=== PATIENT | female | born 1940 | race Caucasian/White ===

== ENCOUNTER 2019-09-09 02:35 | Inpatient (IN) | payer MEDICARE, BC ==
[2019-09-09 03:29] LABS: #Eosinphils 0.1 thou/uL (0.0-0.7); #Lymphocytes 0.4 thou/uL (1.20-3.40); #Monocytes 0.6 thou/uL (0.11-0.59); #Neutrophils 10.7 thou/uL (1.40-6.50); %Basophils 0.2 % (0.0-1.0); %Lymphocytes 3.4 % (21.0-51.0); %Monocytes 4.7 % (0.0-10.0); %Neutrophils 90.7 % (42.0-75.0); Hemoglobin 7.7 g/dL (12.0-16.0); Mean Corpuscular HGB CONC 29.4 g/dL (32.0-36.0); Mean Corpuscular Hemoglobin 21.5 pg (27.0-31.0); Mean Corpuscular Volume 72.9 fL (78.0-98.0); Mean Platelet Volume 7.3 fL (7.4-10.4); Platelet Count 628 thou/uL (130-400); RBC Distribution Width 19.5 % (11.5-14.5); Red Blood Cell (RBC) Count 3.56 mill/uL (4.20-5.40); White Blood Cell (WBC) Count 11.8 thou/uL (4.8-10.8)
[2019-09-09 04:07] LABS: Bilirubin Negative (Negative); Blood, Urine Negative (Negative); Clarity Clear (Clear); Glucose, Urine (Dipstick) Normal (Negative); Leukocyte Negative Leu/uL (Negative); Nitrite Negative (Negative); Protein, Urine (Dipstick) Negative (Neg-Trace); Urobilinogen Normal mg/dL (Less than 2)
[2019-09-09 06:32] VITALS: BMI 28.0
[2019-09-09] MEDS ORDERED: Ondansetron PF 4 MG/2 ML Vial SLOW IVP PRN (06:39)
--- NOTE | 2019-09-09 07:50 | CT ---
PRELIMINARY REPORT/DIRECT RADIOLOGY/EMERGENCY AFTER HOURS PROCEDURE: EXAM: CT Abdomen and Pelvis with Intravenous Contrast CLINICAL HISTORY: ER 2.. Spasm discomfort; nausea vomiting diarrhea for several hours. anemia and sep sis. Surgical history of cholecystectomy, Surgical history of hysterectomy. TECHNIQUE: Axial computed tomography images of the abdomen and pelvis with intravenous contrast. CONTRAST: With; ISOVUE 370, 70ML intravenous. COMPARISON: None provided. FINDINGS: LUNG BASES: Trace bibasilar atelectasis. No pleural effusion. The heart is normal size. Thoracic aort ic calcifications. Moderate sized hiatal hernia. LIVER: Unremarkable. GALLBLADDER AND BILE DUCTS: Status post cholecystectomy. PANCREAS: Unremarkable. SPLEEN: Unremarkable. ADRENAL GLANDS: Unremarkable. KIDNEYS, URETERS, AND BLADDER: Unremarkable. No hydronephrosis or nephrolithiasis. No ureteral or eugenia dder calculi. STOMACH AND BOWEL: Moderate hiatal hernia with fluid level. Nonspecific fluid within the small and l arge bowel. Some small bowel loops are dilated although there is no obstruction. APPENDIX: No CT evidence for appendicitis. PERITONEUM: No free fluid. No free air. LYMPH NODES: No lymphadenopathy. REPRODUCTIVE: Status post hysterectomy. VASCULATURE: No aortic aneurysm. BONES: No acute fracture. Grade 1 anterolisthesis of L4 on L5 and grade 1 anterolisthesis of L5 on S 1. 10 mm lytic lesion within the vertebral body of L2. ABDOMINAL WALL AND SOFT TISSUES: Unremarkable. IMPRESSION: 1. Nonspecific fluid-filled small and large bowel. This is suggestive of enterocolitis which is mos t commonly infectious or inflammatory. 2. Moderate hiatal hernia. 3. Nonspecific lytic lesion within the vertebral body of L2. ELECTRONICALLY SIGNED BY: Jacek Cabrera M.D. Sep 09, 2019 3:57:35 AM VIDEO GAME TECHNICIAN FINAL REPORT CT ABDOMEN AND PELVIS WITH CONTRAST: History: Abdominal pain. Spasm with discomfort. Comparison: CT 2011. Findings: Findings and impression are concordant with the preliminary report. Transcribed Date/Time: 09/09/2019 8:02 AM
[2019-09-09] MEDS: Sodium Chloride 0.9% 1,000 ML IV SCH ×3 (08:15→19:50)
[2019-09-09] MEDS: Acetaminophen 325 MG TAB PO PRN ×2 (09:18→15:02)
[2019-09-09 09:57] LABS: ALT (SGPT) 17 U/L (8-55); AST (SGOT) 24 U/L (5-34); Albumin 3.5 g/dL (3.4-4.8); Alkaline Phosphatase 60 U/L (40-110); Anion Gap 14 mmol/L (10-20); BUN (Urea Nitrogen) 12 mg/dL (9.8-20.1); Bilirubin, Total 0.3 mg/dL (0.2-1.2); Calc. Creatinine Clearance 65 mL/min (70-130); Calcium 7.2 mg/dL (7.8-10.44); Carbon Dioxide 18 mmol/L (23-31); Chloride 113 mmol/L (98-107); Estimated GFR-MDRD 63; Globulin 1.9 g/dL (2.4-3.5); Glucose 117 mg/dL (83-110); Potassium 3.6 mmol/L (3.5-5.1); Protein, Total 5.4 g/dL (6.0-8.3); Sodium 141 mmol/L (136-145)
[2019-09-09] MEDS ORDERED: HYDROcodone/Acetaminophen 5/325 mg Tablet PO PRN (10:57)
--- NOTE | 2019-09-09 11:23 | HP ---
HISTORY OF PRESENT ILLNESS: Mrs. Mac is a 79-year-old woman. She was transferred to this facility from [facility]. According to the patient, she started experimenting some fever, diarrhea, and vomiting last night. She went to [facility]. She was evaluated and transferred to this facility for further management. She denies any fever. She was evaluated, found to be dehydrated and admitted. She denies any coughing. She admits to severe diarrhea and vomiting. She denies any abdominal pain. PAST MEDICAL HISTORY: Remarkable for hypertension. She denies diabetes, denies heart disease, denies chronic lung disease. She does have a history of chronic backache. PAST SURGICAL HISTORY: Remarkable for hysterectomy, appendectomy, cholecystectomy, and she had previous laparotomy due to adhesion. ALLERGIES: SHE HAS ALLERGY TO THORAZINE. SOCIAL HISTORY: She denies any history of cigarette smoking, EtOH abuse, or substance abuse. FAMILY HISTORY: Reviewed and is not contributory. MEDICATIONS: Prior to admission; she was on, 1. Tylenol. 2. Xanax. 3. Aspirin 325 mg daily. 4. Carvedilol. 5. Luvox. 6. Lisinopril. 7. Omeprazole. 8. MiraLAX. 9. Lyrica. 10. Tramadol. 11. Valtrex. REVIEW OF SYSTEMS: CONSTITUTIONAL: Admits to generalized weakness. She denies any fever. HEENT: No headache. No ocular pain. No sore throat. No rhinorrhea. No earache. No epistaxis. NECK: No neck pain. No neck stiffness. CARDIOVASCULAR: No shortness of breath. No chest pain. PULMONARY: No coughing. GASTROINTESTINAL: Admits to vomiting and diarrhea. No abdominal pain. GENITOURINARY: No dysuria. No hematuria. ENDOCRINOLOGY: No heat or cold intolerance. No polyuria, polydipsia, or polyphagia. MUSCULOSKELETAL: Admits to chronic back ache. HEMATOLOGY: No abnormal bleeding. No ecchymosis. LYMPHATIC: No palpable lymphadenopathy. No painful lymphadenopathy. SKIN: No rash. No itching. ALLERGY: No hay fever. NEUROLOGICAL: No seizure. PSYCHIATRIC: Admits she has a history of depression and she has been on antidepressant. PHYSICAL EXAMINATION: GENERAL: At the current time, she is alert, oriented, sick looking. VITAL SIGNS: Her latest vital signs show a temperature of 99.1, pulse rate 94, respiratory rate 18, and blood pressure 150/67. HEENT: Her head is normocephalic and atraumatic. Both her pupils are equal and reactive. Ears and nose, normal. Oral mucosa is moist. Pharyngeal area is clear. She has poor skin turgor. NECK: Supple. There is no distention of the jugular vein. No lymphadenopathy felt. Thyroid gland, not palpable. There is no carotid bruit. CHEST: Symmetrical with regular S1 and S2. LUNGS: Clear. ABDOMEN: Soft. Bowel sounds heard. We could not appreciate any organomegaly. EXTREMITIES: Limbs show no edema. NEUROLOGIC: She moves all extremities. LABORATORY DATA: CBC showed WBC of 11.8, hemoglobin of 7.7, hematocrit of 26, MCV of 72.9, and platelet of 628. Urinalysis show pH of 6, specific gravity of 1.024, otherwise negative. IMAGING DATA: Abdomen and pelvis CT was reported to show nonspecific fluid filled small and large bowel suggestive of enterocolitis. Moderate hiatal hernia and nonspecific lytic lesion in the vertebral body of L2. ASSESSMENT AND PLAN: This is a 79-year-old woman with history of hypertension and chronic back ache, who came in with diarrhea, vomiting, found to be dehydrated. The patient was started on normal saline. We will check her stools for Clostridium difficile and also for culture. We will start her on Flagyl. We will consult GI in view of her anemia and we will also consult Oncology in view of the lytic lesion mentioned on CT. Further evaluation and management will depend on the course of her hospitalization and her response to therapy. Job ID: [id number]
[2019-09-09] MEDS ORDERED: Iopamidol-370 76% 500 ML 1 ML ONE (11:24)
[2019-09-09] MEDS: metroNIDAZOLE 500 MG in Premix Bag 1 BAG IVPB SCH ×3 (12:00→23:16)
[2019-09-09] MEDS: HYDROcodone/Acetaminophen 5/325 mg Tablet PO PRN ×2 (12:01→20:47)
[2019-09-09 14:28] LABS: Iron 9 ug/dL (50-170); Iron Binding Capacity, Total 385 mcg/dL (265-497)
--- NOTE | 2019-09-09 15:52 | CON ---
DATE OF CONSULTATION: 09/09/2019 REASON FOR CONSULTATION: Anemia and possible lytic skeletal lesion. HISTORY OF PRESENT ILLNESS: The patient is a 79-year-old woman, who was admitted for an acute gastrointestinal illness manifested by a subjective fever, diarrhea without blood, and emesis. There is no similar illness in the family. She was evaluated in the [facility] and imaging suggested ileus or, perhaps, early small bowel obstruction. Laboratory studies also showed evidence of a microcytic anemia. Specifically, laboratory studies showed a hemoglobin of 6.9 with an MCV of 74. White blood cell count was 12.7 with a normal differential. The platelet count was 657,000. Of significance, I reviewed the patient's record in [facility], which does show the patient was iron deficient in October 2015 and presented with a hemoglobin of 5 and MCV of 62 with a ferritin of 3. She apparently underwent gastrointestinal endoscopies at that time, although source documents are not available for review. By her report, no significant findings were identified. She was seen in consultation in our office by Dr. Bello at that time and may have received intravenous iron, although it is unclear. In addition to CT findings noted above, there was a 10 mm nonspecific "lytic lesion" within L2. I am asked to see the patient at this time to provide further management recommendations regarding the anemia and the abnormal skeletal findings. ALLERGIES: NONE EXCEPT SOME UNCLEAR REACTION TO THORAZINE. MEDICATIONS: 1. Tylenol. 2. Xanax. 3. Aspirin "discontinued recently.". 4. Coreg. 5. Lisinopril. 6. Omeprazole. 7. MiraLAX. 8. Lyrica. 9. Tramadol. 10. Valtrex. MEDICAL ILLNESS: There is a history of hypertension, but no history of diabetes mellitus or heart disease. She has chronic musculoskeletal discomfort particularly in the low back. PAST SURGICAL HISTORY: She has undergone hysterectomy, appendectomy, cholecystectomy, and a laparotomy for lysis of adhesions. FAMILY HISTORY: There is no history of significant malignancy or blood disorder. SOCIAL HISTORY: She does not use alcohol or tobacco. REVIEW OF SYSTEMS: See history of present illness. Otherwise, she denies significant cardiopulmonary, GI, , musculoskeletal, or neurological complaints. PHYSICAL EXAMINATION: VITAL SIGNS: Temperature 97.7, pulse 93 and regular, respirations 18, and blood pressure 144/68. GENERAL: The patient is well developed, well nourished woman in no acute distress. She is alert, oriented, and cooperative. She is appropriate in conversation. Lying flat and comfortable. HEENT: The extraocular movements are intact. The pupils are equal, round, and reactive to light. NECK: Supple. LUNGS: Clear. CARDIOVASCULAR: Regular rate and rhythm without murmur, rub, gallop, or click. ABDOMEN: No tenderness, organomegaly, masses, bruits, or ascites. EXTREMITIES: No clubbing, cyanosis, or edema. SKIN: Normal. LYMPH: No adenopathy. MUSCULOSKELETAL: No active arthritis. NEUROLOGIC: No focal findings and the cranial nerves 2 through 12 are grossly intact. LABORATORY DATA: See history of present illness. In addition, electrolytes showed a sodium 141, potassium 3.6, chloride 113, and bicarbonate 18. The creatinine is 0.87 and BUN 12. Random blood sugar is 117 and a calcium of 7.2. Liver function studies are normal. IMAGING: See history of present illness. Specifically, the abdominal and pelvic CT scan showed nonspecific fluid within the small and large bowel with some small bowel loops slightly dilated without clear evidence of obstruction. Again, there was a 10 mm lesion in the vertebral body of L2, which was nonspecific. IMPRESSION: 1. Recurrent iron deficiency anemia superimposed upon an acute abdominal illness. 2. Nonspecific "lytic lesion" at L2. RECOMMENDATIONS: I plan to check iron studies and if iron deficiency is confirmed as I suspect, IV iron will be administered while she is hospitalized. She can be followed up in my office thereafter. GI consultation is planned and I would agree with that as she may very well need a colonoscopy, since her last study was in the 2015 or 2016 timeframe. At this point, I would recommend no further evaluation of the L2 lesion as it is nonspecific and small. This can be followed as an outpatient. Thanks very much for allowing me to provide more recommendations. Job ID: [id number] MTDD
[2019-09-09] MEDS ORDERED: Iron, Sodium Ferric Gluconate 250 MG in Sodium Chloride 0.9% 100 ML IVPB SCH (19:15)
[2019-09-09] MEDS: Diphenoxylate HCl/Atropine Tablet PO PRN (19:51)
[2019-09-09] MEDS: Gabapentin 100 MG CAP PO SCH (19:51)
[2019-09-09] MEDS: Diabetic Tussin 200 MG/10 ML UDCUP PO PRN (19:51)
[2019-09-09] MEDS: diphenhydrAMINE 50 MG CAP PO PRN (20:48)
--- NOTE | 2019-09-09 21:29 | CON ---
DATE OF CONSULTATION: 09/09/2019 REASON FOR CONSULTATION: Diarrheal illness, iron deficiency anemia. HISTORY OF PRESENT ILLNESS: Ms. Mac came to the hospital because she had severe diarrhea and vomiting starting yesterday to the point she could not control it. Her had been ill the day before, but his episode was more mild. She denies any other sick contacts. She denies any tainted food that she is aware of. She denies any recent antibiotics or new medications. She had no associated blood with the stools or blood with the vomiting. She said it is felt like a really bad gastroenteritis. In the emergency room, she was found hemodynamically stable though she was tachycardic with pulse in the 120s. She was also afebrile. However, on her labs, she was noted to have a hemoglobin of 6.9. Her white count was 12.7 and platelets were 257, MCV was 74. Hemoccults of her blood in her emesis at the outside facility were negative. The patient states that she has had this problem before about 4 or 5 years ago. She had to get iron infusions. She reportedly had endoscopies with Dr. Wallace in the past, which she reports were negative. I do not have that have access for this right now, but looking at her labs at [facility] in 2016, she had a hemoglobin of 5.1. She states she did well for awhile with iron, but recently has been not been taking her iron much because it makes her somewhat nauseated if she takes it. She has seen Dr. Bello for her anemia in the past as well. Here, she has had documented iron deficiency by labs. She had a CAT scan of the abdomen and pelvis, which was negative except for mild ileus and also lot of fluid in the lumen. There is nonspecific lesion at L2 which Hematology feels is nonsignificant. ALLERGIES: THORAZINE. MEDICATIONS: At home: 1. Tylenol. 2. Xanax. 3. Aspirin. 4. Coreg. 5. Lisinopril. 6. Omeprazole. 7. MiraLAX. 8. Lyrica. 9. Tramadol. 10. Valtrex. 11. Hydrocodone. PAST MEDICAL HISTORY: Hypertension. No diabetes. No heart disease. Chronic back pain for which she takes pain medications. PAST SURGICAL HISTORY: Hysterectomy, appendectomy, cholecystectomy, laparotomy for lysis of adhesions, and endoscopies in the past. FAMILY HISTORY: No history of colon cancer or bleeding disorders. SOCIAL HISTORY: She does not smoke or drink. REVIEW OF SYSTEMS: The patient denies taking NSAIDs over the counter. She has no dysuria, frequency, urgency, weight loss or change in appetite. MEDICATIONS: Here: 1. Tylenol p.r.n. 2. Gabapentin. 3. Hydrocodone. 4. Metronidazole. LABORATORY STUDIES: White count 7.8, hemoglobin 7.7 from 6.9 yesterday. She had 1 unit of blood ordered earlier this morning 4 am. INR is 1.2, BUN and creatinine are 12 and 0.8. Basic metabolic profile normal. this morning. Sodium 127. Liver function tests normal. Iron 9, saturation 2% with ferritin of 13, protein 5.4, albumin 3.5. ASSESSMENT: 1. Acute gastroenteritis with vomiting and diarrhea. I would recommend she be started on IV fluids. 2. Anemia, chronic with no signs of acute GI bleeding. I will give her some IV iron and we consider GI workup again after her acute gastritis is resolved. 3. Antidiarrheal p.r.n. 4. Check magnesium and phosphorus. 5. I do not think she needs an antibiotic. If she is going to be given one, probably fluoroquinolones would be a better choice until her stool cultures come back, but however, I would go and stop the Flagyl. Job ID: [id number]
[2019-09-09] MEDS: Benzonatate 100 MG CAP PO PRN (23:45)
[2019-09-10] MEDS: Acetaminophen 325 MG TAB PO PRN ×3 (03:29→17:04)
[2019-09-10] MEDS: Diphenoxylate HCl/Atropine Tablet PO PRN ×2 (03:29→14:09)
[2019-09-10] MEDS: Sodium Chloride 0.9% 1,000 ML IV SCH ×2 (03:43→08:03)
[2019-09-10 05:12] LABS: #Lymphocytes 1.1 thou/uL (1.20-3.40); #Monocytes 0.7 thou/uL (0.11-0.59); #Neutrophils 5.3 thou/uL (1.40-6.50); %Basophils 0.3 % (0.0-1.0); %Eosinophils 0.5 % (0.0-10.0); %Lymphocytes 15.6 % (21.0-51.0); %Monocytes 10.2 % (0.0-10.0); %Neutrophils 73.4 % (42.0-75.0); Hemoglobin 7.6 g/dL (12.0-16.0); Mean Corpuscular HGB CONC 30.8 g/dL (32.0-36.0); Mean Corpuscular Hemoglobin 23.2 pg (27.0-31.0); Mean Corpuscular Volume 75.4 fL (78.0-98.0); Mean Platelet Volume 6.9 fL (7.4-10.4); Platelet Count 532 thou/uL (130-400); RBC Distribution Width 19.1 % (11.5-14.5); Red Blood Cell (RBC) Count 3.28 mill/uL (4.20-5.40); White Blood Cell (WBC) Count 7.3 thou/uL (4.8-10.8)
[2019-09-10] MEDS: HYDROcodone/Acetaminophen 5/325 mg Tablet PO PRN ×3 (05:31→21:55)
[2019-09-10] MEDS: metroNIDAZOLE 500 MG in Premix Bag 1 BAG IVPB SCH (05:32)
[2019-09-10 05:35] LABS: Phosphorus 1.2 mg/dL (2.3-4.7)
[2019-09-10 05:37] LABS: ALT (SGPT) 24 U/L (8-55); AST (SGOT) 39 U/L (5-34); Albumin 3.9 g/dL (3.4-4.8); Alkaline Phosphatase 63 U/L (40-110); Anion Gap 12 mmol/L (10-20); BUN (Urea Nitrogen) 7 mg/dL (9.8-20.1); Bilirubin, Total 0.3 mg/dL (0.2-1.2); Calc. Creatinine Clearance 68 mL/min (70-130); Calcium 7.5 mg/dL (7.8-10.44); Carbon Dioxide 20 mmol/L (23-31); Chloride 115 mmol/L (98-107); Estimated GFR-MDRD 66; Globulin 1.8 g/dL (2.4-3.5); Glucose 95 mg/dL (83-110); Magnesium 1.7 mg/dL (1.6-2.6); Protein, Total 5.7 g/dL (6.0-8.3); Sodium 144 mmol/L (136-145)
[2019-09-10] MEDS ORDERED: Potassium Chloride 20 MEQ TAB PO SCH (06:00)
[2019-09-10] MEDS ORDERED: Potassium Phosphate 30 MMOL in Sodium Chloride 0.9% 500 ML IVPB SCH (06:30)
[2019-09-10] MEDS: Gabapentin 100 MG CAP PO SCH ×2 (08:30→20:02)
[2019-09-10] MEDS: Benzonatate 100 MG CAP PO PRN ×3 (08:36→21:55)
--- NOTE | 2019-09-10 09:54 | PDOC.HOSPP ---
- Subjective Encounter Date: 09/10/19 Encounter Time: 08:20 Subjective: +Diarrhea, dry cough. - Objective Vital Signs & Weight: Vital Signs (12 hours) Temp Pulse Resp BP Pulse Ox 09/10/19 08:04 98.4 F 100 20 143/74 H 90 L 09/10/19 08:00 98.4 F 09/10/19 04:00 98.1 F 90 18 162/78 H 94 L 09/10/19 00:00 98 F 96 18 168/77 H 97 Weight Weight 168 lb 3.2 oz I&O: 09/09/19 09/10/19 09/11/19 06:59 06:59 06:59 Intake Total 3875 360 Balance 3875 360 Result Diagrams: 09/10/19 04:55 09/10/19 04:55 Hospitalist ROS - Medication Medications: Active Medications Generic Name Dose Route Start Last Admin Trade Name Freq PRN Reason Stop Dose Admin Acetaminophen 650 mg 09/09/19 06:39 09/10/19 03:29 Tylenol PO 650 mg Q6H PRN Administration Mild Pain (1-3) Hydrocodone Bitart/Acetaminophen 1 tab 09/09/19 11:00 09/10/19 05:31 Rudolph 5/325 PO 1 tab TIDPRN PRN Administration Moderate to Severe Pain (6-10) Benzonatate 100 mg 09/09/19 23:33 09/10/19 08:36 Tessalon PO 100 mg TIDPRN PRN Administration Cough Diphenhydramine HCl 50 mg 09/09/19 18:18 09/09/19 20:48 Benadryl PO 50 mg HS PRN Administration Itching & Insomnia Diphenoxylate HCl/Atropine 1 tab 09/09/19 19:06 09/10/19 03:29 Lomotil PO 1 tab Q6H PRN Administration Diarrhea/Loose Stools Gabapentin 100 mg 09/09/19 21:00 09/10/19 08:30 Neurontin PO 100 mg BID WING Administration Guaifenesin 100 mg 09/09/19 18:44 09/09/19 19:51 Robitussin Sf PO 100 mg Q6H PRN Administration Cough Metronidazole 500 mg/ Device 100 mls @ 100 mls/hr 09/09/19 12:00 09/10/19 05: 32 IVPB 100 mls Q6HR WING Administration Sodium Chloride 1,000 mls @ 75 mls/hr 09/09/19 19:15 09/10/19 08:03 Normal Saline 0.9% IV Not Given .[id number] WING Potassium Phosphate 30 mmol/ 510 mls @ 83.3 mls/hr 09/10/19 06:30 09/10/19 06 :31 Sodium Chloride IVPB 09/10/19 12:38 510 mls NOW WING Administration - Exam Neck: no JVD Heart: RRR Respiratory: CTAB Gastrointestinal: soft Extremities: 1+ LE edema Neurological: no weakness Psychiatric: normal affect Hosp A/P (1) Acute gastroenteritis Code(s): K52.9 - NONINFECTIVE GASTROENTERITIS AND COLITIS, UNSPECIFIED Status : Acute (2) Anemia Code(s): D64.9 - ANEMIA, UNSPECIFIED Status: Acute (3) HTN (hypertension) Code(s): I10 - ESSENTIAL (PRIMARY) HYPERTENSION Status: Acute (4) Lytic lesion of bone on x-ray Code(s): M89.9 - DISORDER OF BONE, UNSPECIFIED Status: Acute Plan: Spine.. (5) Hypokalemia Code(s): E87.6 - HYPOKALEMIA Status: Acute (6) Hypokalemia Code(s): E87.6 - HYPOKALEMIA Status: Acute - Plan Continue hydration, Levaquin. Check chest x-ray. f/u with Oncology as outpatient. F/u with GI. Supplement K. Check Mg
--- NOTE | 2019-09-10 10:02 | RAD ---
Exam: Chest one view HISTORY:Possible pneumonia. Comparison: 09/09/2019 FINDINGS: Cardiac silhouette:Upper normal cardiac silhouette Aorta: Atherosclerosis of the aortic knob Pulmonary vessels: Normal Costophrenic angles: No significant pleural fluid. Stable elevation the right hemidiaphragm. LUNGS: Chronic changes of the lung parenchyma. No masses or consolidation. Pneumothorax: None Osseous abnormalities: None IMPRESSION: No acute cardiopulmonary process.
[2019-09-10] MEDS: Potassium Chloride 10 MEQ in Premix Bag 1 BAG IVPB SCH ×2 (11:30→15:23)
[2019-09-10] MEDS ORDERED: Loperamide HCl 1 MG/7.5 ML UDCUP PO PRN (14:56)
--- NOTE | 2019-09-10 15:30 | PRG ---
DATE OF SERVICE: 09/10/2019 SUBJECTIVE: Ms. Mac states she feels well, but when asked in detail, she is still having loose stools 5-7 every 12 hours. She denies any fever. She denies any rashes, myalgias, or arthralgias. Nurse reports her stools are getting a little bit william color, but the patient says it is brown or used to be green. OBJECTIVE: Temperature is 98, pulse is 90-100, blood pressure is 143/74. Abdomen is soft and nontender. Her is at the bedside. LABORATORY DATA: White count dropped from 11.8 to 7.3 today, hemoglobin 7.6, platelet count 532. Sodium 144, potassium 3, chloride 115, bicarb 20, calcium 7.5, phosphorus 1.2 (replaced), magnesium 1.7 (replaced). AST and ALT are 39 and 24. Albumin 3.9. Microbiology and stool culture so far negative from outside facility. Stool culture shows few normal enteric bahman. Lactoferrin was positive. Clostridium difficile was negative. Blood cultures so far negative. ASSESSMENT: Acute diarrheal illness, likely viral. Cultures remain negative. PLAN: 1. I would stop her antibiotics. There is no indication for these. 2. I would change her IV fluids to D5 with potassium in it. 3. Continue to replace electrolytes as needed. 4. She is refusing to take the Lomotil. I have changed the order to Imodium. We will follow along. Job ID: [id number]
[2019-09-10] MEDS: Loperamide HCl 2 MG CAP PO PRN ×2 (17:03→21:55)
[2019-09-10] MEDS: D5 0.9% NS w/ 20 mEq KCl 1,000 ML IV SCH (17:06)
[2019-09-10] MEDS: Diabetic Tussin 200 MG/10 ML UDCUP PO PRN (20:03)
[2019-09-10] MEDS: diphenhydrAMINE 50 MG CAP PO PRN (20:14)
[2019-09-10] MEDS ORDERED: diphenhydrAMINE 25 MG CAP PO PRN (20:25)
[2019-09-10] MEDS: Carvedilol 25 MG TAB PO SCH (20:41)
[2019-09-10] MEDS ORDERED: Gabapentin 100 MG CAP PO SCH (21:00)
[2019-09-11] MEDS: Acetaminophen 325 MG TAB PO PRN ×3 (03:07→19:54)
[2019-09-11] MEDS: Diabetic Tussin 200 MG/10 ML UDCUP PO PRN (03:15)
[2019-09-11 05:34] LABS: #Basophils 0.1 thou/uL (0.0-0.2); #Lymphocytes 1.3 thou/uL (1.20-3.40); #Monocytes 0.9 thou/uL (0.11-0.59); #Neutrophils 5.5 thou/uL (1.40-6.50); %Basophils 0.8 % (0.0-1.0); %Eosinophils 0.6 % (0.0-10.0); %Lymphocytes 17.1 % (21.0-51.0); %Monocytes 11.4 % (0.0-10.0); %Neutrophils 70.1 % (42.0-75.0); Hemoglobin 6.7 g/dL (12.0-16.0); Mean Corpuscular HGB CONC 29.9 g/dL (32.0-36.0); Mean Corpuscular Hemoglobin 22.1 pg (27.0-31.0); Mean Corpuscular Volume 74.1 fL (78.0-98.0); Mean Platelet Volume 7.3 fL (7.4-10.4); Platelet Count 453 thou/uL (130-400); RBC Distribution Width 18.8 % (11.5-14.5); Red Blood Cell (RBC) Count 3.04 mill/uL (4.20-5.40); White Blood Cell (WBC) Count 7.9 thou/uL (4.8-10.8)
[2019-09-11 05:53] LABS: Anion Gap 10 mmol/L (10-20); BUN (Urea Nitrogen) Less than 4 mg/dL (9.8-20.1); Calc. Creatinine Clearance 78 mL/min (70-130); Calcium 7.4 mg/dL (7.8-10.44); Carbon Dioxide 20 mmol/L (23-31); Chloride 115 mmol/L (98-107); Estimated GFR-MDRD 77; Glucose 102 mg/dL (83-110); Magnesium 1.6 mg/dL (1.6-2.6); Potassium 3.1 mmol/L (3.5-5.1); Sodium 142 mmol/L (136-145)
[2019-09-11] MEDS: D5 0.9% NS w/ 20 mEq KCl 1,000 ML IV SCH ×2 (05:55→17:19)
[2019-09-11 05:57] LABS: Phosphorus 1.8 mg/dL (2.3-4.7)
[2019-09-11] MEDS: HYDROcodone/Acetaminophen 5/325 mg Tablet PO PRN ×3 (06:00→21:56)
[2019-09-11] MEDS: Benzonatate 100 MG CAP PO PRN ×3 (06:00→19:55)
[2019-09-11] MEDS: Loperamide HCl 2 MG CAP PO PRN (06:01)
[2019-09-11] MEDS ORDERED: Potassium Phosphate 9 MMOL in Sodium Chloride 0.9% 100 ML IVPB SCH (06:45)
[2019-09-11] MEDS: Carvedilol 25 MG TAB PO SCH ×3 (07:55→19:54)
[2019-09-11] MEDS: Lisinopril 20 MG TAB PO SCH (07:55)
[2019-09-11] MEDS: Gabapentin 100 MG CAP PO SCH ×2 (07:56→19:54)
--- NOTE | 2019-09-11 12:35 | PDOC.HOSPP ---
- Subjective Encounter Date: 09/11/19 Encounter Time: 12:26 Subjective: feels much better - Objective Vital Signs & Weight: Vital Signs (12 hours) Temp Pulse Resp BP Pulse Ox 09/11/19 08:34 98.2 F 87 20 167/80 H 95 09/11/19 08:00 95 09/11/19 03:30 97.4 F L 85 20 152/84 H 96 Weight Weight 168 lb 3.2 oz I&O: 09/10/19 09/11/19 09/12/19 06:59 06:59 06:59 Intake Total 3875 4535 480 Output Total 1625 Balance 3875 3033 480 Result Diagrams: 09/11/19 05:02 09/11/19 05:02 Hospitalist ROS - Medication Medications: Active Medications Generic Name Dose Route Start Last Admin Trade Name Freq PRN Reason Stop Dose Admin Acetaminophen 650 mg 09/09/19 06:39 09/11/19 10:39 Tylenol PO 650 mg Q6H PRN Administration Mild Pain (1-3) Hydrocodone Bitart/Acetaminophen 1 tab 09/09/19 11:00 09/11/19 06:00 [place] 5/325 PO 1 tab TIDPRN PRN Administration Moderate to Severe Pain (6-10) Benzonatate 100 mg 09/09/19 23:33 09/11/19 06:00 Tessalon PO 100 mg TIDPRN PRN Administration Cough Carvedilol 25 mg 09/10/19 21:00 09/11/19 07:56 Coreg PO 25 mg BID WING Administration Diphenhydramine HCl 50 mg 09/09/19 18:18 09/10/19 20:14 Benadryl PO 50 mg HS PRN Administration Itching & Insomnia Fluvoxamine Maleate 200 mg 09/11/19 09:00 09/11/19 07:55 Luvox PO 200 mg DAILY WING Administration Gabapentin 100 mg 09/09/19 21:00 09/11/19 07:56 Neurontin PO 100 mg BID WING Administration Guaifenesin 100 mg 09/09/19 18:44 09/11/19 03:15 Robitussin Sf PO 100 mg Q6H PRN Administration Cough Potassium Chloride/Dextrose/Sod Cl 1,000 mls @ 75 mls/hr 09/10/19 15:15 09/11 05:55 D5 0.9% Ns W/ 20 Meq Kcl IV 1,000 mls .[id number] WING Administration Levofloxacin 500 mg 09/11/19 06:00 09/11/19 05:58 Levaquin PO 500 mg 0600 WING Administration Lisinopril 40 mg 09/11/19 09:00 09/11/19 07:55 Zestril PO 40 mg DAILY WING Administration Loperamide HCl 2 mg 09/10/19 16:00 09/11/19 06:01 Imodium PO 2 mg Q4H PRN Administration Diarrhea/Loose Stools - Exam General Appearance: awake alert Neck: no JVD Heart: RRR, no murmur Respiratory: CTAB Gastrointestinal: soft, non-tender, normal bowel sounds Extremities: no edema Hosp A/P (1) Iron deficiency anemia due to chronic blood loss Code(s): D50.0 - IRON DEFICIENCY ANEMIA SECONDARY TO BLOOD LOSS (CHRONIC) Status: Acute (2) Dehydration Code(s): E86.0 - DEHYDRATION Status: Acute (3) Acute gastroenteritis Code(s): K52.9 - NONINFECTIVE GASTROENTERITIS AND COLITIS, UNSPECIFIED Status : Acute (4) HTN (hypertension) Code(s): I10 - ESSENTIAL (PRIMARY) HYPERTENSION Status: Acute - Plan transfusion in progress no evidense for acute bleed will receive iv iron
[2019-09-11] MEDS ORDERED: guaiFENesin ER 600 MG TAB PO SCH (15:30)
--- NOTE | 2019-09-11 15:38 | PDOC.MOPN ---
Interval History: feels better after transfusion - Vital Signs Vital Signs: Vital Signs (12 hours) Temp Pulse Resp BP Pulse Ox 09/11/19 08:34 98.2 F 87 20 167/80 H 95 09/11/19 08:00 95 Weight Weight 168 lb 3.2 oz - Physical Exam General: Alert, Oriented x3, No acute distress HEENT: Atraumatic, PERRLA, EOMI, Mucous membr. moist/pink Lungs: Other (cough) Cardiovascular: Regular rate, Normal S1, Normal S2, No murmurs, Gallops, Rubs Abdomen: Normal bowel sounds, Soft, No tenderness, No hepatospenomegaly, No masses Extremities: No clubbing Skin: No rashes, No breakdown, No significant lesion Neurological: Normal gait, Normal speech, Strength at 5/5 X4 ext, Normal tone, Sensation intact, Cranial nerves 3-12 NL, Reflexes 2+ Psych/Mental Status: Mental status NL, Mood NL - Labs Result Diagrams: 09/11/19 05:02 09/11/19 05:02 Lab results: Laboratory Results - last 24 hr 09/11/19 05:02: WBC 7.9, RBC 3.04 L, Hgb 6.7 L, Hct 22.5 L, MCV 74.1 L, MCH 22.1 L, MCHC 29.9 L, RDW 18.8 H, Plt Count 453 H, MPV 7.3 L, Neutrophils % 70.1 , Lymphocytes % 17.1 L, Monocytes % 11.4 H, Eosinophils % 0.6, Basophils % 0.8, Neutrophils # 5.5, Lymphocytes # 1.3, Monocytes # 0.9 H, Eosinophils # 0.0, Basophils # 0.1 09/11/19 05:02: Phosphorus 1.8 L 09/11/19 05:02: Sodium 142, Potassium 3.1 L, Chloride 115 H, Carbon Dioxide 20 L , Anion Gap 10, BUN Less than 4 L, Creatinine 0.73, Estimated GFR (MDRD) 77, Glucose 102, Calcium 7.4 L, Magnesium 1.6 09/09/19 03:08: Blood Type O POSITIVE, Antibody Screen NEGATIVE, Crossmatch See Detail Status: lab reviewed by me A/P - Problem (1) Anemia Current Visit: Yes Code(s): D64.9 - ANEMIA, UNSPECIFIED Status: Acute (2) Iron deficiency anemia due to chronic blood loss Current Visit: Yes Code(s): D50.0 - IRON DEFICIENCY ANEMIA SECONDARY TO BLOOD LOSS (CHRONIC) Status: Acute - Plan Plan: PRBC transfusion today Has recd dose of IV iron this admission She will follow up in our clinic after discharge for repeat labs, IV iron prn.
[2019-09-11] MEDS: guaiFENesin ER 600 MG TAB PO SCH (19:53)
[2019-09-11] MEDS: diphenhydrAMINE 50 MG CAP PO PRN (20:50)
--- NOTE | 2019-09-11 21:33 | RAD ---
Chest one view HISTORY: Dyspnea. Cough. COMPARISON: 09/10/2019. FINDINGS: Cardiac silhouette is magnified and upper limits of normal in size. Pulmonary vasculature m ore engorged. Mediastinum remains midline. Parenchymal scarring at the left base is stable. Linear atelectasis now projects over the central portion of the right lung. Likely within the anterio r segment of the right upper lobe. This has appeared Periodically on prior chest radiographs. No evidence of pneumothorax. IMPRESSION: Redeveloping atelectasis right upper lobe. Chronic scarring left lower lobe.
[2019-09-12] MEDS ORDERED: guaiFENesin/Codeine Phosphate 200 mg/20 mg 10 ml UD Cup PO PRN (01:48)
[2019-09-12] MEDS ORDERED: Furosemide 20 MG/2 ML VIAL SLOW IVP SCH (02:00)
[2019-09-12] MEDS: Loperamide HCl 2 MG CAP PO PRN (02:37)
[2019-09-12 05:46] LABS: #Eosinphils 0.1 thou/uL (0.0-0.7); #Lymphocytes 1.6 thou/uL (1.20-3.40); #Neutrophils 5.6 thou/uL (1.40-6.50); %Basophils 0.3 % (0.0-1.0); %Eosinophils 1.8 % (0.0-10.0); %Lymphocytes 18.6 % (21.0-51.0); %Monocytes 11.8 % (0.0-10.0); %Neutrophils 67.5 % (42.0-75.0); Hemoglobin 7.8 g/dL (12.0-16.0); Mean Corpuscular HGB CONC 29.8 g/dL (32.0-36.0); Mean Corpuscular Hemoglobin 22.3 pg (27.0-31.0); Mean Corpuscular Volume 74.8 fL (78.0-98.0); Mean Platelet Volume 7.1 fL (7.4-10.4); Platelet Count 449 thou/uL (130-400); RBC Distribution Width 18.8 % (11.5-14.5); Red Blood Cell (RBC) Count 3.49 mill/uL (4.20-5.40); White Blood Cell (WBC) Count 8.3 thou/uL (4.8-10.8)
[2019-09-12] MEDS: Benzonatate 100 MG CAP PO PRN ×2 (06:11→21:04)
[2019-09-12 06:16] LABS: Anion Gap 11 mmol/L (10-20); BUN (Urea Nitrogen) Less than 4 mg/dL (9.8-20.1); Calc. Creatinine Clearance 73 mL/min (70-130); Calcium 7.8 mg/dL (7.8-10.44); Carbon Dioxide 23 mmol/L (23-31); Chloride 111 mmol/L (98-107); Estimated GFR-MDRD 72; Glucose 91 mg/dL (83-110); Potassium 3.1 mmol/L (3.5-5.1); Sodium 142 mmol/L (136-145)
[2019-09-12] MEDS: HYDROcodone/Acetaminophen 5/325 mg Tablet PO PRN ×3 (06:17→21:05)
[2019-09-12 06:21] LABS: Phosphorus 1.8 mg/dL (2.3-4.7)
[2019-09-12] MEDS ORDERED: Potassium Phosphate 12 MMOL in Sodium Chloride 0.9% 100 ML IVPB SCH (07:00)
[2019-09-12] MEDS: D5 0.9% NS w/ 20 mEq KCl 1,000 ML IV SCH (07:13)
[2019-09-12] MEDS: guaiFENesin ER 600 MG TAB PO SCH (09:13)
[2019-09-12] MEDS: Lisinopril 20 MG TAB PO SCH (09:14)
[2019-09-12] MEDS: Carvedilol 25 MG TAB PO SCH ×2 (09:14→21:04)
[2019-09-12] MEDS: Gabapentin 100 MG CAP PO SCH ×2 (09:14→21:04)
[2019-09-12] MEDS: Acetaminophen 325 MG TAB PO PRN (09:17)
[2019-09-12] MEDS: guaiFENesin/Codeine Phosphate 200 mg/20 mg 10 ml UD Cup PO PRN ×2 (10:20→18:23)
--- NOTE | 2019-09-12 13:31 | PDOC.HOSPP ---
- Subjective Encounter Date: 09/12/19 Encounter Time: 13:30 Subjective: no diarrhea, still has cough - Objective Vital Signs & Weight: Vital Signs (12 hours) Temp Pulse Resp BP Pulse Ox 09/12/19 13:10 85 18 95 09/12/19 08:12 98.1 F 82 20 155/85 H 97 09/12/19 08:00 96 09/12/19 06:57 86 20 96 09/12/19 04:27 98.1 F 86 18 172/87 H 96 Weight Weight 168 lb 3.2 oz I&O: 09/11/19 09/12/19 09/13/19 06:59 06:59 06:59 Intake Total 4535 2840 240 Output Total 1625 Balance 2910 2840 240 Result Diagrams: 09/12/19 05:19 09/12/19 05:19 Radiology Reviewed by me: Yes (cxr- R sided atelectasis) Hospitalist ROS - Medication Medications: Active Medications Generic Name Dose Route Start Last Admin Trade Name Freq PRN Reason Stop Dose Admin Acetaminophen 650 mg 09/09/19 06:39 09/12/19 09:17 Tylenol PO 650 mg Q6H PRN Administration Mild Pain (1-3) Hydrocodone Bitart/Acetaminophen 1 tab 09/09/19 11:00 09/12/19 06:17 [place] 5/325 PO 1 tab TIDPRN PRN Administration Moderate to Severe Pain (6-10) Albuterol/Ipratropium 3 ml 09/12/19 01:00 09/12/19 13:10 Duoneb NEB 3 ml [id number] WING Administration Benzonatate 100 mg 09/09/19 23:33 09/12/19 06:11 Tessalon PO 100 mg TIDPRN PRN Administration Cough Carvedilol 25 mg 09/10/19 21:00 09/12/19 09:14 Coreg PO 25 mg BID WING Administration Diphenhydramine HCl 50 mg 09/09/19 18:18 09/11/19 20:50 Benadryl PO 50 mg HS PRN Administration Itching & Insomnia Fluvoxamine Maleate 200 mg 09/11/19 09:00 09/12/19 09:13 Luvox PO 200 mg DAILY WING Administration Gabapentin 100 mg 09/09/19 21:00 09/12/19 09:14 Neurontin PO 100 mg BID WING Administration Guaifenesin/Codeine Phosphate 10 ml 09/12/19 01:48 09/12/19 02:28 Robitussin Ac PO 10 ml HS PRN Administration Cough Guaifenesin/Codeine Phosphate 10 ml 09/12/19 09:46 09/12/19 10:20 Robitussin Ac PO 10 ml Q4H PRN Administration Cough Lisinopril 40 mg 09/11/19 09:00 09/12/19 09:14 Zestril PO 40 mg DAILY WING Administration Loperamide HCl 2 mg 09/10/19 16:00 09/12/19 02:37 Imodium PO 2 mg Q4H PRN Administration Diarrhea/Loose Stools - Exam General Appearance: awake alert Neck: no JVD Heart: RRR, no murmur Respiratory: CTAB Gastrointestinal: soft, normal bowel sounds Extremities: no edema Hosp A/P (1) Iron deficiency anemia due to chronic blood loss Code(s): D50.0 - IRON DEFICIENCY ANEMIA SECONDARY TO BLOOD LOSS (CHRONIC) Status: Acute (2) Dehydration Code(s): E86.0 - DEHYDRATION Status: Acute (3) Acute gastroenteritis Code(s): K52.9 - NONINFECTIVE GASTROENTERITIS AND COLITIS, UNSPECIFIED Status : Acute (4) HTN (hypertension) Code(s): I10 - ESSENTIAL (PRIMARY) HYPERTENSION Status: Acute Qualifiers: Hypertension type: essential hypertension Qualified Code(s): I10 - Essential (primary) hypertension (5) Atelectasis of right lung Code(s): J98.11 - ATELECTASIS Status: Acute - Plan post transfusion , iv iron incentive spirometry, up, out of bed discussed EBEN DEAN with GI
--- NOTE | 2019-09-12 13:51 | PRG ---
DATE OF SERVICE: 09/11/2019 SUBJECTIVE: Ms. Mac's diarrhea is improved, but she is still having some rust-colored stool. No abdominal pains. No fevers. OBJECTIVE: VITAL SIGNS: Temperature max 98.4, pulse is in the 80s to 90s, blood pressure 167/80. ABDOMEN: Soft and nontender. LUNGS: Clear. RECTAL: Some mucoid rust-colored stools. LABORATORY DATA: Hemoglobin 6.7, white count 7.9, platelet count 453. Basic metabolic profile, normal. Stool cultures, nondiagnostic. ASSESSMENT: 1. Improving diarrhea. 2. Some rectal bleeding, likely related to outlet or possibly mild colitis. 3. Chronic anemia, somewhat worse today with hemoglobin of 6.7. RECOMMENDATIONS: Continue present medications. Discontinue antibiotics and transfuse. If the patient's anemia is at worse while she is here, she may need endoscopy. Job ID: [id number]
[2019-09-12] MEDS: diphenhydrAMINE 50 MG CAP PO PRN (21:23)
[2019-09-13] MEDS: guaiFENesin/Codeine Phosphate 200 mg/20 mg 10 ml UD Cup PO PRN ×5 (00:12→22:46)
[2019-09-13] MEDS: Acetaminophen 325 MG TAB PO PRN ×3 (00:13→20:01)
[2019-09-13] MEDS: HYDROcodone/Acetaminophen 5/325 mg Tablet PO PRN ×3 (05:34→22:45)
--- NOTE | 2019-09-13 08:08 | PRG ---
DATE OF SERVICE: 09/12/2019 SUBJECTIVE: Ms. Mac still having diarrhea, but she OBJECTIVE: VITAL SIGNS: Temperature is 98, pulse 82. LUNGS: Crackles, . Upper airway sounds in the right side. ABDOMEN: Soft and nontender. ASSESSMENT: 1. Chronic anemia, iron deficiency. 2. Admission with acute diarrheal illness, improved. 3. Rectal bleeding, improved. 4. Atelectasis, right lung. PLAN: I talked with Dr. Fleming. I agree with IV and stopping antibiotics. Stool cultures negative and will get her up walking around. Hopefully, she can get home in a few weeks and screening in the outpatient setting for outpatient evaluation of her iron deficiency. We will advance diet to bland. Job ID: [id number]
[2019-09-13] MEDS: Lisinopril 20 MG TAB PO SCH (08:14)
[2019-09-13] MEDS: Carvedilol 25 MG TAB PO SCH ×2 (08:15→20:02)
[2019-09-13] MEDS: Gabapentin 100 MG CAP PO SCH ×2 (08:15→20:02)
--- NOTE | 2019-09-13 11:34 | PDOC.HOSPP ---
- Subjective Encounter Date: 09/13/19 Encounter Time: 11:28 Subjective: stronger, less cough, sob - Objective Vital Signs & Weight: Vital Signs (12 hours) Temp Pulse Resp BP BP Pulse Ox 09/13/19 08:14 146/76 H 09/13/19 08:00 98.0 F 76 20 146/76 H 96 09/13/19 07:45 92 20 96 09/13/19 03:42 98.0 F 71 18 121/70 92 L 09/13/19 00:39 91 20 Weight Weight 168 lb 3.2 oz I&O: 09/12/19 09/13/19 09/14/19 06:59 06:59 06:59 Intake Total 2840 2160 600 Balance 2840 2160 600 Result Diagrams: 09/12/19 05:19 09/12/19 05:19 Hospitalist ROS - Medication Medications: Active Medications Generic Name Dose Route Start Last Admin Trade Name Freq PRN Reason Stop Dose Admin Acetaminophen 650 mg 09/09/19 06:39 09/13/19 11:16 Tylenol PO 650 mg Q6H PRN Administration Mild Pain (1-3) Hydrocodone Bitart/Acetaminophen 1 tab 09/09/19 11:00 09/13/19 05:34 [place] 5/325 PO 1 tab TIDPRN PRN Administration Moderate to Severe Pain (6-10) Albuterol/Ipratropium 3 ml 09/12/19 01:00 09/13/19 07:45 Duoneb NEB 3 ml [id number] WING Administration Benzonatate 100 mg 09/09/19 23:33 09/12/19 21:04 Tessalon PO 100 mg TIDPRN PRN Administration Cough Carvedilol 25 mg 09/10/19 21:00 09/13/19 08:15 Coreg PO 25 mg BID WING Administration Diphenhydramine HCl 50 mg 09/09/19 18:18 09/12/19 21:23 Benadryl PO 50 mg HS PRN Administration Itching & Insomnia Fluvoxamine Maleate 200 mg 09/11/19 09:00 09/13/19 09:43 Luvox PO 200 mg DAILY WING Administration Gabapentin 100 mg 09/09/19 21:00 09/13/19 08:15 Neurontin PO 100 mg BID WING Administration Guaifenesin/Codeine Phosphate 10 ml 09/12/19 09:46 09/13/19 11:13 Robitussin Ac PO 10 ml Q4H PRN Administration Cough Lisinopril 40 mg 09/11/19 09:00 09/13/19 08:14 Zestril PO 40 mg DAILY WING Administration Loperamide HCl 2 mg 09/10/19 16:00 09/12/19 02:37 Imodium PO 2 mg Q4H PRN Administration Diarrhea/Loose Stools - Exam General Appearance: awake alert Neck: no JVD Heart: RRR, no murmur Respiratory: CTAB Gastrointestinal: soft, normal bowel sounds Extremities: no edema Hosp A/P (1) Iron deficiency anemia due to chronic blood loss Code(s): D50.0 - IRON DEFICIENCY ANEMIA SECONDARY TO BLOOD LOSS (CHRONIC) Status: Acute (2) Dehydration Code(s): E86.0 - DEHYDRATION Status: Acute (3) Acute gastroenteritis Code(s): K52.9 - NONINFECTIVE GASTROENTERITIS AND COLITIS, UNSPECIFIED Status : Acute (4) HTN (hypertension) Code(s): I10 - ESSENTIAL (PRIMARY) HYPERTENSION Status: Acute Qualifiers: Hypertension type: essential hypertension Qualified Code(s): I10 - Essential (primary) hypertension (5) Atelectasis of right lung Code(s): J98.11 - ATELECTASIS Status: Acute (6) Acute respiratory failure with hypoxemia Code(s): J96.01 - ACUTE RESPIRATORY FAILURE WITH HYPOXIA Status: Acute - Plan post transfusion , iv iron incentive spirometry, up, out of bed Check O2 sats off O2 discussed future DEAN for occult bleeding
--- NOTE | 2019-09-13 13:01 | PQF ---
CLINICAL DOCUMENTATION IMPROVEMENT CLARIFICATION FORM: ICD-10 Updated PLEASE DO AN ADDENDUM TO THE PROGRESS NOTE WITH ANY DOCUMENTATION UPDATES OR ADDITIONS AND CARRY THROUGH TO DC SUMMARY. THANK YOU. DATE: 09/13/19 ATTN: DR. THAKUR Please exercise your independent, professional judgment in responding to the clarification form. Clinical indicators are provided on the bottom of this form for your review Please check appropriate box(es): [ ] Sepsis due to: (Pna, UTI, gangrenous gall bladder, etc.) Due to: [ ] Device (please specify) [ ] Implant [ ] Graft [ ] Infusion [ x ] SIRS due to non-infectious process (please specify etiology) [ ] with organ dysfunction [ ] without organ dysfunction [ ] Severe sepsis with acute organ dysfunction of: (Examples: respiratory failure, encephalopathy, acute kidney failure, other) [ ] Septic Shock [ ] Localized infection without sepsis [ ] Other diagnosis [ ] Unable to determine In addition, please specify: Present on Admission (POA): [ ] Yes [ ] No [ ] Unable to determine For continuity of documentation, please document condition throughout progress notes and discharge summary. Thank You. CLINICAL INDICATORS - SIGNS / SYMPTOMS / LABS / RESULTS AND LOCATION IN MR ER NOTE: PULSE 115 TEMP 101.8 WBC 09/09: 11.8 RISKS: ENTEROCOLITIS (H&P 09/09) H/O DIABETES (H&P 09/10) TREATMENT: IV FLUIDS (ER-09/12) STOOL CULTURES 09/09 LEVAQUIN (09/11-09/12) (This form is maintained as a part of the permanent medical record) [employer] Win[employer] Viewer 2015 [employer]. All Rights Reserved [email or web address] [email or web address] Office: [phone] GINA
[2019-09-13 19:15] VITALS: TEMP 98.2
[2019-09-13] MEDS: Benzonatate 100 MG CAP PO PRN (20:01)
[2019-09-13] MEDS: diphenhydrAMINE 50 MG CAP PO PRN (22:46)
--- NOTE | 2019-09-13 23:39 | PRG ---
DATE OF SERVICE: 09/13/2019 SUBJECTIVE: Ms. Mac is no longer having diarrhea. She is breathing better. She is off oxygen. OBJECTIVE: VITAL SIGNS: Temperature is 98.2, pulse 95, O2 saturation 93%, respirations 17, and blood pressure . ABDOMEN: Soft and nontender. LABORATORY DATA: Hemoglobin is 8.3, white count 7.8, platelet count 449. BNP normal. Final stool culture normal bahman. ASSESSMENT: 1. Acute gastroenteritis, likely viral, improving. 2. Chronic iron deficiency anemia with heme-positive stools. She has had previous upper and lower endoscopies for this and capsule endoscopy by Dr. David Wallace negative. She is on iron supplementation. For time, we will stop that. In the outpatient setting once this all resolved, we will set her up for upper and lower endoscopy. 3. Dehydration, resolved. Hypertension. Atelectasis of right lung, improving. Job ID: [id number]
[2019-09-14] MEDS: Acetaminophen 325 MG TAB PO PRN (05:08)
[2019-09-14] MEDS: guaiFENesin/Codeine Phosphate 200 mg/20 mg 10 ml UD Cup PO PRN ×2 (05:08→12:02)
[2019-09-14] MEDS: Lisinopril 20 MG TAB PO SCH (07:52)
[2019-09-14] MEDS: Carvedilol 25 MG TAB PO SCH (07:53)
[2019-09-14] MEDS: Gabapentin 100 MG CAP PO SCH (07:53)
[2019-09-14] MEDS: HYDROcodone/Acetaminophen 5/325 mg Tablet PO PRN (07:53)
[2019-09-14 07:54] VITALS: BP 146/76
--- NOTE | 2019-09-14 11:08 | DIS ---
DATE OF ADMISSION: 09/09/2019 DATE OF DISCHARGE: 09/14/2019 PRIMARY CARE DOCTOR: Inder Wallace [employer]IOR DEVELOPER, also Arjun Kinsey MD. DISPOSITION: Discharged home. FINAL DIAGNOSES: Gastroenteritis, resolved, iron deficiency anemia, hypertension, acute respiratory failure with hypoxia, atelectasis of lung, hypertension, dehydration. DISCHARGE MEDICATIONS: 1. Valtrex 500 mg t.i.d. 2. Luvox 200 mg a day. 3. Coreg 25 mg twice a day. 4. Zestril 40 mg a day. 5. Gabapentin 100 mg b.i.d. 6. Hydrocodone 10/325 one p.o. t.i.d. p.r.n. 7. Robitussin AC 10 mL q.6 hours p.r.n. cough. 8. Albuterol sulfate 2 puffs inhaled p.r.n. shortness of breath q.4 hours. ALLERGIES: TO MEPERIDINE AND CHLORPROMAZINE. CODE STATUS: Full. PENDING AT TIME OF DISCHARGE: Nothing. DIET: As tolerated. HOSPITAL COURSE: The [facility] [place] [facility] with nausea, vomiting, fever. She was found to be dehydrated, started on fluids. She was found to have significant iron deficiency anemia. GI was consulted, as was Oncology Dr. Arjun Kinsey and Dr. Musa Phillips. The patient underwent no studies during her hospital stay. She did receive transfusion. Her hemoglobin serially were 7.7, 7.6, 6.7. She received a unit of packed cells. It was 7.8 on 09/12. Her initial white count on 09/09 was 11.8, has been normal since. Her platelet count has been elevated. Chemistries done. Metabolic profile: Sodium 141, potassium 3.6, BUN 12, her creatinine 0.87. Iron 9, iron binding capacity 385. The patient received as previously mentioned a transfusion plus a loading dose of IV iron per Dr. Kinsey. The patient was initially hypoxic, had atelectasis. This is improved during her hospital stay. Chest is clear. Vital signs are stable. Her room air saturations are now 92-97%. She is comfortable with being discharged. She is to follow up with PCP in 3 days. She has an appointment with Dr. Kinsey in 2-3 weeks. GI will call her in the near future to arrange endoscopy studies going forward. Job ID: [id number]
[2019-09-14] MEDS: Loperamide HCl 2 MG CAP PO PRN (12:02)
== END 2019-09-14 12:20 | disposition home or self-care (01) | DRG 391 ==
LOC: ERS 02:35 → T4-B 06:06
PROVIDERS: ADMIT Hospitalist; ATTEND Emergency Medicine
PROC: 30233N1 Transfusion of Nonautologous Red Blood Cells into Peripheral Vein, Percutaneous Approach (ICD-10-PCS; principal; 2019-09-09)
DX: A08.4 Viral intestinal infection, unspecified (principal); J96.01 Acute respiratory failure with hypoxia; R65.10 Systemic inflammatory response syndrome (SIRS) of non-infectious origin without acute organ dysfunction; J98.11 Atelectasis; I25.10 Atherosclerotic heart disease of native coronary artery without angina pectoris; I10 Essential (primary) hypertension; E86.0 Dehydration; M89.9 Disorder of bone, unspecified; E87.6 Hypokalemia; D50.0 Iron deficiency anemia secondary to blood loss (chronic); F32.9 Major depressive disorder, single episode, unspecified; Z90.49 Acquired absence of other specified parts of digestive tract; Z90.710 Acquired absence of both cervix and uterus; Z88.8 Allergy status to other drugs, medicaments and biological substances; Z79.899 Other long term (current) drug therapy
CPT/HCPCS: 36415; 36430; 51701; 71045; 74177; 80048; 80053; 81003; 82728; 83540; 83550; 83735; 84100; 85025; 86850; 86900; 86901; 94640; 94760; 96360; 96361; J1940; J2916; J3480; J3490; J7050; J7620; P9016; Q0163; Q9967

== ENCOUNTER 2020-07-22 15:34 | Emergency (ER) | payer MEDICARE, BC ==
[2020-07-22 16:22] LABS: Hemoglobin 4.9 g/dL (12.0-16.0); Mean Corpuscular HGB CONC 27.6 g/dL (32.0-36.0); Mean Corpuscular Hemoglobin 20.2 pg (27.0-31.0); Mean Corpuscular Volume 73.1 fL (78.0-98.0); Platelet Count 663 thou/uL (130-400); RBC Distribution Width 20.1 % (11.5-14.5); White Blood Cell (WBC) Count 5.3 thou/uL (4.8-10.8)
[2020-07-22 16:23] LABS: #Basophils 0.1 thou/uL (0.0-0.2); #Eosinphils 0.2 thou/uL (0.0-0.7); #Lymphocytes 1.5 thou/uL (1.20-3.40); #Monocytes 0.7 thou/uL (0.11-0.59); #Neutrophils 2.9 thou/uL (1.40-6.50); %Basophils 1.5 % (0.0-1.0); %Eosinophils 3.6 % (0.0-10.0); %Monocytes 12.1 % (0.0-10.0); %Neutrophils 54.8 % (42.0-75.0)
[2020-07-22 16:37] LABS: Reflex for Review?? NO
[2020-07-22 16:38] LABS: Anisocytosis MODERATE=16-30 cells (100X) (0-5/hpf); Elliptocytes SLIGHT = 2-5 cells (100X) (0-1/hpf); Hypochromia MODERATE=16-30 cells (100X) (0-5/hpf); MDiff Complete? YES; Microcytosis SLIGHT = 6-15 cells (100X) (0-5/hpf); Ovalocytes SLIGHT = 2-5 cells (100X) (0-1/hpf); Platelet Morphology Comment Appears Increased; Polychromasia MODERATE = 3-4 cells (100X) (0-2/hpf); Schistocytes SLIGHT = 2-5 cells (100X) (0-1/hpf); Target Cells SLIGHT = 2-5 cells (100X) (0-1/hpf); Tear Drops SLIGHT = 2-5 cells (100X) (0-1/hpf)
[2020-07-22 16:47] LABS: ALT (SGPT) 15 U/L (8-55); AST (SGOT) 15 U/L (5-34); Albumin 3.9 g/dL (3.4-4.8); Alkaline Phosphatase 69 U/L (40-110); Anion Gap 15 mmol/L (10-20); BUN (Urea Nitrogen) 16 mg/dL (9.8-20.1); Bilirubin, Total Less than 0.2 mg/dL (0.2-1.2); Calc. Creatinine Clearance 0 mL/min (70-130); Calcium 8.8 mg/dL (7.8-10.44); Carbon Dioxide 27 mmol/L (23-31); Chloride 106 mmol/L (98-107); Estimated GFR-MDRD 41; Globulin 2.2 g/dL (2.4-3.5); Glucose 127 mg/dL (83-110); Potassium 4.1 mmol/L (3.5-5.1); Protein, Total 6.1 g/dL (6.0-8.3); Sodium 144 mmol/L (136-145)
--- NOTE | 2020-07-22 16:54 | RAD ---
EXAM: CHEST ONE VIEW HISTORY: Decreased hemoglobin. Shortness of breath and dizziness with exertion. COMPARISON: 07/22/2020 at 1234 hours. FINDINGS: Cardiac silhouette is mildly enlarged. Subsegmental atelectasis in the right midlung zone has improve d. There is persistent mild linear scar versus atelectasis in the region of the lingula. No new area of consolidation or pleural fluid is seen. Again noted is evidence of a hiatal hernia overlying the lower mediastinum. Vascular calcifications are seen in the thoracic aorta. Right glenohumeral osteoarthropathy is present. Surgical clips overlie the right upper quadrant. IMPRESSION: 1. No acute cardiopulmonary process. 2. Stable linear scar versus atelectasis in the region of the lingula. There has been improvement in subsegmental atelectasis in the right midlung zone. 3. Mild cardiomegaly. 4. Hiatal hernia.
[2020-07-22] MEDS ORDERED: Furosemide 40 MG/4 ML VIAL ONE (17:58)
[2020-07-22 18:55] LABS: Bilirubin Negative (Negative); Blood, Urine Negative (Negative); Clarity Clear (Clear); Glucose, Urine (Dipstick) Normal (Negative); Ketone, Urine Negative (Negative); Leukocyte Negative Leu/uL (Negative); Nitrite Negative (Negative); Protein, Urine (Dipstick) Negative (Neg-Trace); Specific Gravity, Urine 1.012 (1.002-1.036); Urobilinogen Normal mg/dL (Less than 2); pH, Urine 6.5 (5.0-9.0)
== END 2020-07-22 23:20 | disposition home or self-care (01) ==
LOC: ERS 15:34
DX: D64.9 Anemia, unspecified (principal); K21.9 Gastro-esophageal reflux disease without esophagitis; I10 Essential (primary) hypertension; F32.9 Major depressive disorder, single episode, unspecified; Z79.899 Other long term (current) drug therapy
CPT/HCPCS: 36430; 71045; 80053; 81003; 82274; 83880; 84484; 85025; 86850; 86900; 86901; 86920; 93005; 96374; 99285; P9016; 36415; J1940

== ENCOUNTER 2020-11-28 15:00 | Inpatient (IN) | payer MEDICARE, BC ==
[2020-11-29 12:19] VITALS: BMI 29.2
[2020-12-03] MEDS ORDERED: Vancomycin 1 GM/200 ML BAG ONE (08:11)
[2020-12-03] MEDS ORDERED: Sodium Chloride 0.9% 100 ML ONE (08:11)
[2020-12-03] MEDS ORDERED: Tranexamic Acid 1,000 MG/10 ML VIAL ONE (08:12)
[2020-12-03] MEDS ORDERED: Fentanyl 100 MCG/2 ML VIAL IV PRN (09:08)
[2020-12-03] MEDS ORDERED: Midazolam HCl 2 mg/2 ml Vial ONE (09:08)
[2020-12-03] MEDS ORDERED: Fentanyl 100 MCG/2 ML VIAL ONE ×2 (09:08→10:05)
[2020-12-03] MEDS ORDERED: Ropivacaine 0.2% 550 ML 550 ML NERVE BLCK SCH (09:15)
[2020-12-03] MEDS ORDERED: Promethazine HCl 25 MG/ML VIAL IM PRN (09:15)
[2020-12-03] MEDS ORDERED: Ondansetron PF 4 MG/2 ML Vial IVP PRN (09:15)
[2020-12-03] MEDS ORDERED: Zolpidem Tartrate 5 MG TAB PO PRN (09:15)
[2020-12-03] MEDS ORDERED: HYDROcodone/Acetaminophen 5/325 mg Tablet PO PRN (09:15)
[2020-12-03] MEDS ORDERED: traMADol HCl 50 MG TAB PO PRN ×2 (09:15)
[2020-12-03] MEDS ORDERED: HYDROcodone/Acetaminophen 10/325 mg Tablet PO PRN ×2 (09:53)
[2020-12-03] MEDS ORDERED: Gabapentin 300 MG CAP PO PRN (09:55)
[2020-12-03] MEDS ORDERED: Methocarbamol 500 MG TAB PO PRN (09:55)
[2020-12-03] MEDS ORDERED: diphenhydrAMINE 25 MG CAP PO PRN (09:55)
[2020-12-03] MEDS ORDERED: [UNRECOGNIZED DRUG - OTHER] PO PRN (09:55)
[2020-12-03] MEDS ORDERED: valACYclovir 500 MG TAB PO PRN (09:55)
[2020-12-03] MEDS ORDERED: Lidocaine 1% PF 5 ML VIAL ONE (10:31)
[2020-12-03] MEDS ORDERED: Ropivacaine 2% HCl/PF (20 MG/10 ML VIAL) ONE (10:31)
[2020-12-03] MEDS ORDERED: ePHEDrine Sulfate 50 MG/10 ML VIAL ONE (10:31)
[2020-12-03] MEDS ORDERED: Rocuronium Bromide 10 MG/ML (10ML VIAL) ONE (10:31)
[2020-12-03] MEDS ORDERED: PROPOFOL 200 MG/20 ML VIAL ONE (10:31)
[2020-12-03] MEDS ORDERED: PHENYLEPHRINE-NS 100 MCG/ML 10 ML SYRINGE ONE (10:31)
[2020-12-03] MEDS ORDERED: Ropivacaine 0.5% HCl/PF (150 MG/30 ML VIAL) ONE (10:31)
[2020-12-03] MEDS ORDERED: Labetalol HCl 100 MG/20 ML VIAL ONE ×2 (10:31→12:20)
[2020-12-03] MEDS ORDERED: SUGAMMADEX SODIUM 500 MG/5 ML VIAL ONE (11:41)
[2020-12-03] MEDS ORDERED: Ondansetron HCl/PF 4 MG/2 ML Vial IVP PRN (12:27)
[2020-12-03] MEDS: Ketorolac Tromethamine 30 MG/ML VIAL IVP SCH ×3 (14:42→23:50)
[2020-12-03] MEDS: Sodium Chloride 0.9% 1,000 ML IV SCH (15:07)
[2020-12-03] MEDS: CEFAZOLIN 2 GM in Premix Bag 1 BAG IVPB SCH (18:07)
[2020-12-03] MEDS: Carvedilol 6.25 MG TAB PO SCH (20:57)
[2020-12-04] MEDS: Sodium Chloride 0.9% 1,000 ML IV SCH (02:06)
[2020-12-04] MEDS: CEFAZOLIN 2 GM in Premix Bag 1 BAG IVPB SCH (02:10)
[2020-12-04] MEDS: HYDROcodone/Acetaminophen 5/325 mg Tablet PO PRN ×2 (03:41→09:05)
[2020-12-04 05:08] VITALS: TEMP 97.8
[2020-12-04] MEDS: Ketorolac Tromethamine 30 MG/ML VIAL IVP SCH ×2 (05:37→11:19)
[2020-12-04] MEDS ORDERED: lamoTRIgine 100 MG TAB PO SCH (09:00)
[2020-12-04] MEDS ORDERED: Aripiprazole 2 MG TAB PO SCH (09:00)
[2020-12-04] MEDS ORDERED: Ascorbic Acid 500 mg Chewable Tablet PO SCH (09:00)
[2020-12-04] MEDS ORDERED: Lisinopril 20 MG TAB PO SCH (09:00)
[2020-12-04] MEDS: Carvedilol 6.25 MG TAB PO SCH (09:02)
[2020-12-04 11:59] VITALS: BP 162/82
== END 2020-12-04 13:14 | disposition home or self-care (01) | DRG 483 ==
LOC: SJJU 12-03 07:52 → EDSTATUS 12-03 15:00 → SURG A 12-03 16:12
PROVIDERS: ADMIT Orthopaedic Surgery; ATTEND Orthopaedic Surgery
PROC: 0RRJ00Z Replacement of Right Shoulder Joint with Reverse Ball and Socket Synthetic Substitute, Open Approach (ICD-10-PCS; principal; 2020-12-03)
DX: M19.011 Primary osteoarthritis, right shoulder (principal); Z20.822 Contact with and (suspected) exposure to COVID-19; K21.9 Gastro-esophageal reflux disease without esophagitis; F32.9 Major depressive disorder, single episode, unspecified; F41.9 Anxiety disorder, unspecified; Z90.49 Acquired absence of other specified parts of digestive tract; Z90.710 Acquired absence of both cervix and uterus; Z79.899 Other long term (current) drug therapy
CPT/HCPCS: 36415; 86850; 86900; 86901; A4306; C1713; J0690; J1885; J2250; J2704; J2795; J3010; J3370; J3490

== ENCOUNTER 2020-11-28 15:06 | Outpatient (CLI) | payer MEDICARE, BC ==
[2020-11-28 16:03] LABS: #Eosinphils 0.3 10x3/uL (0.0-0.5); #Monocytes 0.5 10x3/uL (0.0-1.1); #Neutrophils 2.2 10x3/uL (1.5-8.4); %Basophils 0.7 % (0.0-2.0); %Eosinophils 6.2 % (0.0-6.0); %Lymphocytes 30.8 % (18.0-47.0); %Neutrophils 51.1 % (40.0-75.0); Hemoglobin 9.8 g/dL (12.0-15.5); Mean Corpuscular Hemoglobin 29.5 pg (27.0-33.0); Mean Corpuscular Volume 98.5 fl (81.6-98.3); Mean Platelet Volume 8.6 fl (7.4-10.4); Platelet Count 393 10x3/uL (150-450); RBC Distribution Width 13.8 % (11.5-14.5); Red Blood Cell (RBC) Count 3.32 10x6/uL (3.90-5.03); White Blood Cell (WBC) Count 4.4 10x3/uL (3.5-10.5)
[2020-11-28 16:43] LABS: Anion Gap 11 mmol/L (10-20); BUN (Urea Nitrogen) 20 mg/dL (9.8-20.1); Calc. Creatinine Clearance 0 mL/min (70-130); Calcium 9.1 mg/dL (7.8-10.44); Carbon Dioxide 29 mmol/L (23-31); Chloride 107 mmol/L (98-107); Glucose 96 mg/dL (83-110); Potassium 4.8 mmol/L (3.5-5.1); Sodium 142 mmol/L (136-145)
[2020-11-29 02:10] LABS: SARS-CoV-2 PCR by NAA Not Detected (NotDetected)
== END 2020-11-28 15:07 | disposition home or self-care (01) ==
LOC: LABBT 15:06
PROVIDERS: ATTEND Orthopaedic Surgery
DX: Z01.818 Encounter for other preprocedural examination (principal); M19.011 Primary osteoarthritis, right shoulder; Z20.822 Contact with and (suspected) exposure to COVID-19
CPT/HCPCS: 80048; 85025; 93005; U0003; U0005; 87635; 93010

== ENCOUNTER 2021-05-23 08:52 | Day surgery (SDC) | payer MEDICARE, BC ==
[2021-05-23] MEDS ORDERED: diphenhydrAMINE 25 MG CAP PO PRN (09:01)
[2021-05-23] MEDS ORDERED: Acetaminophen 500 MG TAB PO PRN (09:01)
[2021-05-23] MEDS ORDERED: Sodium Chloride 0.9% 20 ML ONE (09:04)
[2021-05-23 15:10] VITALS: BP 118/56; TEMP 98.3
== END 2021-05-23 15:18 | disposition home or self-care (01) ==
LOC: ONC/OP 08:52
PROVIDERS: ATTEND Nurse Practitioner Family
PROC: 30233N1 Transfusion of Nonautologous Red Blood Cells into Peripheral Vein, Percutaneous Approach (ICD-10-PCS; principal; 2021-05-23)
DX: D64.9 Anemia, unspecified (principal); D69.6 Thrombocytopenia, unspecified; Z88.8 Allergy status to other drugs, medicaments and biological substances
CPT/HCPCS: 36430; 86850; 86900; 86901; P9016; Q0163

== ENCOUNTER 2023-01-08 09:56 | Outpatient (CLI) | payer MEDICARE, BC | END 2023-01-08 09:57 | disposition home or self-care (01) | LOC: MRI 09:56 | PROVIDERS: ATTEND Anesthesiology Pain Medicine | DX: M48.062 Spinal stenosis, lumbar region with neurogenic claudication (principal); M48.07 Spinal stenosis, lumbosacral region | CPT/HCPCS: 72148 ==

== ENCOUNTER 2025-04-03 17:33 | Inpatient (IN) | payer MEDICARE ==
[2025-04-03 18:03] VITALS: BMI 26.6
[2025-04-03] MEDS ORDERED: Albuterol 1.25 MG (3 mL) NEB NEB PRN (18:56)
[2025-04-03] MEDS ORDERED: Benzocaine/Menthol 1 LOZ LOZ PO PRN (19:21)
[2025-04-03] MEDS ORDERED: Methocarbamol 500 MG TAB PO PRN ×2 (19:27→19:41)
[2025-04-03] MEDS: Carvedilol 6.25 MG TAB PO SCH (19:46)
[2025-04-03] MEDS: Pantoprazole 40 MG DR.TAB PO SCH (19:47)
[2025-04-03] MEDS: HYDROcodone/Acetaminophen 5/325 mg Tablet PO PRN (19:51)
[2025-04-03] MEDS: Albuterol 2.5 MG (3 mL) NEB NEB PRN (20:09)
[2025-04-03] MEDS: GUAIFENESIN SF SOLN 200 MG/10 ML UDCUP PO PRN (21:27)
[2025-04-04 00:21] LABS: Hematocrit 24.5 % (36.0-47.0); Hemoglobin 7.3 g/dL (12.0-16.0)
[2025-04-04 05:38] LABS: #Basophils Less than 0.03 10x3/uL (0.0-0.2); #Eosinophils Less than 0.03 10x3/uL (0.0-0.7); #Monocytes 0.09 10x3/uL (0.11-0.59); #Neutrophils 3.76 10x3/uL (1.40-6.50); %Basophils 0.0 % (0.0-1.0); %Eosinophils 0.0 % (0.0-10.0); %Lymphocytes 18.0 % (21.0-51.0); %Monocytes 1.9 % (0.0-10.0); %Neutrophils 79.7 % (42.0-75.0); Hematocrit 24.5 % (36.0-47.0); Hemoglobin 7.2 g/dL (12.0-16.0); Mean Corpuscular Hemoglobin 22.6 pg (27.0-31.0); Mean Corpuscular Volume 77.0 fL (78.0-98.0); Platelet Count 400 10x3/uL (130-400); Red Blood Cell (RBC) Count 3.18 mill/uL (4.20-5.40); White Blood Cell (WBC) Count 4.72 10x3/uL (4.8-10.8)
[2025-04-04 05:55] LABS: Anion Gap 11 mmol/L (10-20); BUN (Urea Nitrogen) 16 mg/dL (9.8-20.1); Calc. Creatinine Clearance 62 mL/min (70-130); Calcium 8.3 mg/dL (7.8-10.44); Carbon Dioxide 26 mmol/L (23-31); Chloride 109 mmol/L (98-107); Glucose 137 mg/dL (83-110); Magnesium 2.3 mg/dL (1.6-2.6); Potassium 4.1 mmol/L (3.5-5.1); Sodium 142 mmol/L (136-145)
[2025-04-04] MEDS: Pantoprazole 40 MG DR.TAB PO SCH (09:54)
[2025-04-04] MEDS: lamoTRIgine 100 MG TAB PO SCH (09:55)
[2025-04-04] MEDS: Carvedilol 6.25 MG TAB PO SCH (09:55)
[2025-04-04] MEDS: Acetaminophen 325 MG TAB PO PRN (12:57)
[2025-04-05 09:44] LABS: #Basophils 0.06 10x3/uL (0.0-0.2); #Eosinophils 0.14 10x3/uL (0.0-0.7); #Monocytes 0.83 10x3/uL (0.11-0.59); #Neutrophils 6.36 10x3/uL (1.40-6.50); %Basophils 0.7 % (0.0-1.0); %Eosinophils 1.7 % (0.0-10.0); %Lymphocytes 11.8 % (21.0-51.0); %Monocytes 9.9 % (0.0-10.0); %Neutrophils 75.5 % (42.0-75.0); Hematocrit 28.3 % (36.0-47.0); Hemoglobin 8.5 g/dL (12.0-16.0); Mean Corpuscular Hemoglobin 23.0 pg (27.0-31.0); Mean Corpuscular Volume 76.5 fL (78.0-98.0); Platelet Count 436 10x3/uL (130-400); Red Blood Cell (RBC) Count 3.70 mill/uL (4.20-5.40); White Blood Cell (WBC) Count 8.41 10x3/uL (4.8-10.8)
[2025-04-05 10:32] LABS: Anion Gap 14 mmol/L (10-20); BUN (Urea Nitrogen) 11 mg/dL (9.8-20.1); Calc. Creatinine Clearance 61 mL/min (70-130); Calcium 9.0 mg/dL (7.8-10.44); Carbon Dioxide 26 mmol/L (23-31); Chloride 105 mmol/L (98-107); Glucose 110 mg/dL (83-110); Potassium 4.0 mmol/L (3.5-5.1); Sodium 141 mmol/L (136-145)
[2025-04-06 01:33] VITALS: TEMP 97.9
[2025-04-06 08:16] LABS: #Basophils 0.04 10x3/uL (0.0-0.2); #Eosinophils 0.12 10x3/uL (0.0-0.7); #Monocytes 0.72 10x3/uL (0.11-0.59); #Neutrophils 3.91 10x3/uL (1.40-6.50); %Basophils 0.7 % (0.0-1.0); %Eosinophils 2.0 % (0.0-10.0); %Lymphocytes 18.6 % (21.0-51.0); %Monocytes 12.2 % (0.0-10.0); %Neutrophils 66.2 % (42.0-75.0); Hematocrit 30.7 % (36.0-47.0); Hemoglobin 9.1 g/dL (12.0-16.0); Mean Corpuscular Hemoglobin 22.6 pg (27.0-31.0); Mean Corpuscular Volume 76.4 fL (78.0-98.0); Platelet Count 432 10x3/uL (130-400); Red Blood Cell (RBC) Count 4.02 mill/uL (4.20-5.40); White Blood Cell (WBC) Count 5.91 10x3/uL (4.8-10.8)
[2025-04-06 08:30] LABS: Anion Gap 15 mmol/L (10-20); BUN (Urea Nitrogen) 15 mg/dL (9.8-20.1); Calc. Creatinine Clearance 58 mL/min (70-130); Calcium 8.9 mg/dL (7.8-10.44); Carbon Dioxide 25 mmol/L (23-31); Chloride 104 mmol/L (98-107); Glucose 114 mg/dL (83-110); Potassium 3.5 mmol/L (3.5-5.1); Sodium 140 mmol/L (136-145)
[2025-04-06 12:10] VITALS: BP 124/79
== END 2025-04-06 15:10 | disposition home or self-care (01) | DRG 812 ==
LOC: T4-A 17:33
PROVIDERS: ADMIT Hospitalist; ATTEND Student in an Organized Health Care Education/Training Program
PROC: 30233N1 Transfusion of Nonautologous Red Blood Cells into Peripheral Vein, Percutaneous Approach (ICD-10-PCS; principal; 2025-04-03)
DX: D64.9 Anemia, unspecified (principal); N17.9 Acute kidney failure, unspecified; F33.9 Major depressive disorder, recurrent, unspecified; J06.9 Acute upper respiratory infection, unspecified; I10 Essential (primary) hypertension; K21.9 Gastro-esophageal reflux disease without esophagitis; M54.9 Dorsalgia, unspecified; Z79.899 Other long term (current) drug therapy; I25.10 Atherosclerotic heart disease of native coronary artery without angina pectoris; N80.9 Endometriosis, unspecified; Z98.890 Other specified postprocedural states; Z90.49 Acquired absence of other specified parts of digestive tract; Z90.710 Acquired absence of both cervix and uterus; Z88.5 Allergy status to narcotic agent; Z88.8 Allergy status to other drugs, medicaments and biological substances; I44.7 Left bundle-branch block, unspecified; G89.29 Other chronic pain; R19.5 Other fecal abnormalities
CPT/HCPCS: 36415; 36416; 36430; 80048; 83735; 85025; 86850; 86900; 86901; 87633; 94640; J7120; J7611; P9016

== ENCOUNTER 2025-05-11 06:43 | Day surgery (SDC) | payer MEDICARE ==
[2025-05-10 15:29] VITALS: BMI 29.2
[2025-05-11] MEDS ORDERED: PROPOFOL 20 ML ONE ×2 (09:14→09:53)
== END 2025-05-11 11:12 | disposition home or self-care (01) ==
LOC: SDC 06:43
PROVIDERS: ATTEND Internal Medicine Gastroenterology
PROC: 0D753ZZ Dilation of Esophagus, Percutaneous Approach (ICD-10-PCS; principal; 2025-05-11)
PROC: 0DJD8ZZ Inspection of Lower Intestinal Tract, Via Natural or Artificial Opening Endoscopic (ICD-10-PCS; 2025-05-11)
DX: D50.0 Iron deficiency anemia secondary to blood loss (chronic) (principal); R19.5 Other fecal abnormalities; R01.1 Cardiac murmur, unspecified; K44.9 Diaphragmatic hernia without obstruction or gangrene; I12.9 Hypertensive chronic kidney disease with stage 1 through stage 4 chronic kidney disease, or unspecified chronic kidney disease; N18.9 Chronic kidney disease, unspecified; K21.9 Gastro-esophageal reflux disease without esophagitis; I25.10 Atherosclerotic heart disease of native coronary artery without angina pectoris; Z79.899 Other long term (current) drug therapy; Z88.8 Allergy status to other drugs, medicaments and biological substances; Z91.048 Other nonmedicinal substance allergy status
CPT/HCPCS: 43235; 43450; 45378; J2704